=== PATIENT | male | born 1995 | race Caucasian/White ===

== ENCOUNTER 2016-11-04 00:31 | Emergency (ER) | payer OTHER ==
[~2016-11-04] VITALS: Ht 172.7 cm; Wt 68.9 kg
[2016-11-04 01:18] LABS: Acetaminophen < 2.0 ug/mL (10-30); Salicylate < 1.7 mg/dL (2.8-20.0)
[2016-11-04] MEDS ORDERED: LORazepam 0.5 MG TAB PO ONE (20:00)
[2016-11-05 01:15] VITALS: BP 110/75
== END 2016-11-05 01:23 | disposition short-term general hospital (02) ==
LOC: EDBD 00:31 → ER 00:31
DX: F32.9 Major depressive disorder, single episode, unspecified (principal); F23 Brief psychotic disorder; F41.9 Anxiety disorder, unspecified
CPT/HCPCS: 36415; 80307; 80320; 80329